=== PATIENT | female | born 1975 | race Caucasian/White ===

== ENCOUNTER → 2017-09-03 | Outpatient (CLI) | payer MEDICAID ==
--- NOTE | 2017-09-06 11:56 | MM ---
Reason for exam: screening (asymptomatic). Last mammogram was performed 1 year and 5 months ago. History: Taking hormonal contraceptives for 25 years beginning at age 13. Physical Findings: A clinical breast exam by your physician is recommended on an annual basis and results should be correlated with mammographic findings. MG 3D Screening Mammo W/Cad Bilateral CC and MLO view(s) were taken. Prior study comparison: April 15, 2016, bilateral MG 3d screening mammo w/cad. April 02, 2015, bilateral MG screening mammo w CAD. The breast tissue is heterogeneously dense. This may lower the sensitivity of mammography. There is no discrete abnormality. No significant changes when compared with prior studies. ASSESSMENT: Negative, BI-RAD 1 RECOMMENDATION: Routine screening mammogram of both breasts in 1 year.
== END | disposition home or self-care (01) ==
LOC: RADMAMWWP 07:34
PROVIDERS: ATTEND Obstetrics & Gynecology
DX: Z12.31 Encounter for screening mammogram for malignant neoplasm of breast (principal)
CPT/HCPCS: 77063; 77067

== ENCOUNTER → 2017-09-14 | Outpatient (CLI) | payer MEDICAID ==
[2017-09-14 07:09] LABS: Basophils # (A) 0.1 k/uL (0-0.2); Basophils % (A) 1 %; Eosinophils # (A) 0.3 k/uL (0-0.7); Eosinophils % (A) 4 %; HCT 43.5 % (34.0-46.0); HGB 13.8 gm/dL (11.4-16.0); Lymphocytes # (A) 2.6 k/uL (1.0-4.8); Lymphocytes % (A) 38 %; MCH 28.6 pg (25.0-35.0); MCHC 31.8 g/dL (31.0-37.0); Mean Platelet Volume 7.4; Monocytes # (A) 0.4 k/uL (0-1.0); Monocytes % (A) 5 %; Neutrophils # (A) 3.5 k/uL (1.3-7.7); Neutrophils % (A) 49 %; Platelet Count 282 k/uL (150-450); RBC 4.83 m/uL (3.80-5.40); RDW 13.8 % (11.5-15.5)
== END | disposition home or self-care (01) ==
LOC: LABPAT 06:36
PROVIDERS: ATTEND Orthopaedic Surgery
DX: Z01.812 Encounter for preprocedural laboratory examination (principal); G56.01 Carpal tunnel syndrome, right upper limb
CPT/HCPCS: 36415; 81025; 85025

== ENCOUNTER 2017-09-23 06:25 | Day surgery (SDC) | payer MEDICAID ==
[2017-09-16 08:57] VITALS: BMI 29.5
--- NOTE | 2017-09-22 21:13 | HP ---
HISTORY AND PHYSICAL SURGERY: 09/23/2016. DATE OF SERVICE: Romelia Blanton is a 42-year-old patient seen with symptomatic right carpal tunnel syndrome. After having treatment options discussed, she elected to proceed with decompression of the right median nerve. Consent was obtained. PAST MEDICAL HISTORY: Noncontributory. PAST SURGICAL HISTORY: Noncontributory. DAILY MEDICATIONS: 1. Sprintec. 2. Aleve as needed. ALLERGIES: SULFA. SOCIAL HISTORY: Patient denies current tobacco use. PHYSICAL EVALUATION: RIGHT HAND: Positive carpal compression, carpal Tinel's, both causing numbness and tingling to the median nerve distribution. No tenderness along the A1 enma sites. There is good perfusion sensation distally. There is a good radial pulse present. Right wrist radiographs revealed some mild osteoarthritic changes. An EMG of the right upper extremity revealed carpal tunnel syndrome. IMPRESSION: Right carpal tunnel syndrome. PLAN: Decompression, right median nerve. MMODL / IJN: [id number] /
[~2017-09-23 06:25] MED LIST: DEXAMETHASONE SOD PHOSPHATE 10 MG/ML 1 ML VIAL IV ONE; HYDROmorphone 0.5 MG/0.5 ML SYRINGE IVP PRN; LACTATED RINGERS 1,000 ML IV SCH; LIDOCAINE 1% 20 ML VIAL (10MG/ML) FOR IV START INTRADERMA PRN; MIDAZOLAM 2 MG/2 ML VIAL IV PRN; ONDANSETRON 4 MG/2 ML VIAL IVP ONE; SCOPOLAMINE 1.5MG/72HR PATCH TRANSDERM ONE; ceFAZolin 1,000 MG in DEXTROSE/WATER 1 50ML.BAG IV ONE
[2017-09-23] MEDS ORDERED: LIDOCAINE 1% INJ 10MG/ML (20 ML MDV) ONE (07:27)
[2017-09-23] MEDS ORDERED: PROPOFOL 10 MG/ML 20 ML VIAL IV ONE (07:27)
[2017-09-23] MEDS ORDERED: fentaNYL (PF) 50 MCG/ML 2 ML AMP ONE (07:27)
[2017-09-23] MEDS ORDERED: MIDAZOLAM 2 MG/2 ML VIAL ONE (07:27)
[2017-09-23] MEDS ORDERED: BUPIVACAINE (PF) 0.25% 30 ML VIAL SQ ONE (07:37)
--- NOTE | 2017-09-23 08:00 | P.OP ---
Date of Procedure: 09/23/17 Preoperative Diagnosis: Right carpal tunnel syndrome Postoperative Diagnosis: Right carpal tunnel syndrome Procedure(s) Performed: Decompression right median nerve Anesthesia: MAC, local Surgeon: Westley Sweeney Estimated Blood Loss (ml): 0 Pathology: none sent Condition: stable Disposition: PACU Indications for Procedure: 42-year-old patient seen with symptomatic right carpal tunnel syndrome. We discussed treatment options, she elected to proceed with decompression right median nerve. Operative Findings: See description of procedure Description of Procedure: The patient was taken to the operative suite. The patient underwent IV sedation by the department of anesthesia. A well-padded tourniquet was placed proximal right upper extremity. The right upper extremity was prepped and draped in the normal sterile orthopedic fashion. We infiltrated the proposed incision site with 10 mL quarter percent plain Marcaine. When sufficient local analgesia was noted the tourniquet was insufflated to 250. I made an incision beginning at the distal volar wrist crease extending distally approximately 3 cm in line with the fourth metacarpal sharply through skin. Dissection was taken down through the subcu soft tissues down to the palmar fascia to the transverse carpal ligament. I now incised the transverse carpal ligament. I completed the release proximally and distally with blunt Metzenbaums. There was good decompression of the nerve with complete release of the transverse carpal ligament. There was good hemostasis. The skin margins were proximal nylon suture. We applied sterile dressings followed by sterile web roll and Fausto bandage. The tourniquet was released with good immediate capillary refill of all digits. Patient then awakened, transferred to recovery stable condition.
[2017-09-23 08:02] VITALS: TEMP 97.6
[2017-09-23 09:09] VITALS: BP 108/60; PULSE 61; RESP 18
== END 2017-09-23 09:35 | disposition home or self-care (01) ==
LOC: OR 06:25
PROVIDERS: ATTEND Orthopaedic Surgery
DX: G56.01 Carpal tunnel syndrome, right upper limb (principal); E07.9 Disorder of thyroid, unspecified; Z88.2 Allergy status to sulfonamides; Z79.3 Long term (current) use of hormonal contraceptives; Z79.899 Other long term (current) drug therapy
CPT/HCPCS: 64721; 81025; J1100; J2405; J0690

== ENCOUNTER → 2018-01-13 | Outpatient (CLI) | payer MEDICAID ==
[2018-01-13 07:44] LABS: HCT 37.7 % (34.0-46.0); HGB 12.6 gm/dL (11.4-16.0); MCH 29.3 pg (25.0-35.0); MCHC 33.4 g/dL (31.0-37.0); MCV 87.8 fL (80.0-100.0); Mean Platelet Volume 6.9; Platelet Count 235 k/uL (150-450); RBC 4.29 m/uL (3.80-5.40); RDW 12.7 % (11.5-15.5); WBC 6.5 k/uL (3.8-10.6)
[2018-01-13 09:06] LABS: ALT 23 U/L (9-52); AST 19 U/L (14-36); Albumin 4.1 g/dL (3.5-5.0); Alkaline Phosphatase 51 U/L (38-126); Anion Gap 11 mmol/L; Blood Urea Nitrogen 12 mg/dL (7-17); Calcium 9.3 mg/dL (8.4-10.2); Carbon Dioxide 27 mmol/L (22-30); Chloride 103 mmol/L (98-107); Cholesterol 176 mg/dL (<200); Glucose 85 mg/dL (74-99); HDL Cholesterol 48 mg/dL (40-60); LDL Cholesterol,Calculated 109 mg/dL (0-99); Potassium 4.2 mmol/L (3.5-5.1); Sodium 141 mmol/L (137-145); Total Bilirubin 1.1 mg/dL (0.2-1.3); Total Protein 6.8 g/dL (6.3-8.2); Triglycerides 94 mg/dL (<150)
== END | disposition home or self-care (01) ==
LOC: LABWHC1 07:08
PROVIDERS: ATTEND Family Medicine
DX: E03.9 Hypothyroidism, unspecified (principal); R53.83 Other fatigue
CPT/HCPCS: 36415; 80053; 80061; 84439; 84443; 84481; 85027

== ENCOUNTER → 2018-08-09 | Outpatient (CLI) | payer MEDICAID | END | disposition home or self-care (01) | LOC: LABWHC1 15:49 | PROVIDERS: ATTEND Obstetrics & Gynecology | DX: N91.2 Amenorrhea, unspecified (principal); N93.8 Other specified abnormal uterine and vaginal bleeding | CPT/HCPCS: 36415; 82670; 83001; 83002 ==

== ENCOUNTER → 2018-08-10 | Outpatient (CLI) | payer MEDICAID ==
--- NOTE | 2018-08-11 07:16 | US ---
EXAMINATION TYPE: US transvaginal DATE OF EXAM: 08/10/2018 COMPARISON: US CLINICAL HISTORY: N93.8 DUB. Pt states DUB since February TECHNIQUE: Transvaginal (TV). Transvaginal sonographic images of the pelvis were acquired. Date of LMP: 07/23/2018 EXAM MEASUREMENTS: Uterus: 9.0 x 3.8 x 5.3 cm Endometrial Stripe: 0.9 cm Right Ovary: 3.2 x 2.6 x 2.1 cm Left Ovary: 2.0 x 1.9 x 1.5 cm 1. Uterus: Anteverted Heterogeneous, multiple Nabothian cysts in cervix, small cystic areas scatte red within myometrium- largest= 0.7 x 0.4 x 0.5 cm 2. Endometrium: ?thickened 3. Right Ovary: probable involuting hemorrhagic cyst= 2.1 x 1.6 x 1.7 cm 4. Left Ovary: wnl 5. Bilateral Adnexa: wnl 6. Posterior cul-de-sac: Small amount of free fluid IMPRESSION: 1. Probable hemorrhagic cyst right ovary. 2. Cervical nabothian cysts.
== END | disposition home or self-care (01) ==
LOC: RADUSWWP 15:36
PROVIDERS: ATTEND Obstetrics & Gynecology
DX: N88.8 Other specified noninflammatory disorders of cervix uteri (principal); N93.8 Other specified abnormal uterine and vaginal bleeding
CPT/HCPCS: 76830

== ENCOUNTER → 2018-09-08 | Outpatient (CLI) | payer MEDICAID ==
--- NOTE | 2018-09-08 16:35 | MR ---
EXAMINATION TYPE: MR knee RT wo con DATE OF EXAM: 09/08/2018 COMPARISON: Plain film 08/31/2017 HISTORY: Pain in right knee TECHNIQUE: Multiplanar, multisequence imaging of the right knee is performed without IV contrast. FINDINGS: MEDIAL MENISCUS: Posterior horn of the medial meniscus shows some increased signal which does not ext end to the articular surface may be due to degeneration LATERAL MENISCUS: Anterior and posterior horns are intact without tear. CRUCIATE LIGAMENTS: The anterior and posterior cruciate ligaments are intact and unremarkable. COLLATERAL LIGAMENTS: The medial collateral ligament and lateral collateral ligament complex are inta ct and unremarkable. EXTENSOR MECHANISM: Visualized quadriceps and patellar tendons are intact. EFFUSION: There is a small joint effusion. POPLITEAL CYST: No popliteal/romo cyst. 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 OTHER: No additional significant abnormality is appreciated. IMPRESSION: Chondromalacia patella and additional findings above..
== END | disposition home or self-care (01) ==
LOC: RADMRIMAIN 15:37
PROVIDERS: ATTEND Orthopaedic Surgery
DX: M22.41 Chondromalacia patellae, right knee (principal)

== ENCOUNTER → 2018-09-13 | Outpatient (CLI) | payer MEDICAID ==
--- NOTE | 2018-09-19 14:41 | MM ---
Reason for exam: screening (asymptomatic). Last mammogram was performed 1 year ago. History: Taking hormonal contraceptives for 25 years beginning at age 13. Physical Findings: A clinical breast exam by your physician is recommended on an annual basis and results should be correlated with mammographic findings. MG 3D Screening Mammo W/Cad Bilateral CC and MLO view(s) were taken. Prior study comparison: September 03, 2017, bilateral MG 3d screening mammo w/cad. April 15, 2016, bilateral MG 3d screening mammo w/cad. The breast tissue is heterogeneously dense. This may lower the sensitivity of mammography. No significant changes when compared with prior studies. ASSESSMENT: Negative, BI-RAD 1 RECOMMENDATION: Routine screening mammogram of both breasts in 1 year.
== END | disposition home or self-care (01) ==
LOC: RADMAMWWP 07:14
PROVIDERS: ATTEND Obstetrics & Gynecology
DX: Z12.31 Encounter for screening mammogram for malignant neoplasm of breast (principal)
CPT/HCPCS: 77063; 77067

== ENCOUNTER → 2018-09-13 | Outpatient (CLI) | payer MEDICAID ==
[2018-09-13 08:23] LABS: HCT 39.3 % (34.0-46.0); HGB 12.7 gm/dL (11.4-16.0); MCH 28.8 pg (25.0-35.0); MCHC 32.3 g/dL (31.0-37.0); MCV 89.1 fL (80.0-100.0); Mean Platelet Volume 6.4; Platelet Count 286 k/uL (150-450); RBC 4.41 m/uL (3.80-5.40); RDW 12.6 % (11.5-15.5); WBC 7.8 k/uL (3.8-10.6)
[2018-09-13 18:00] LABS: Albumin 4.2 g/dL (3.80-4.90); Albumin/Globulin Ratio 1.83 (1.20-2.10); Anion Gap 7.3 mmol/L (4.00-12.00); Calcium 8.8 mg/dL (8.7-10.3); Carbon Dioxide 25.7 mmol/L (21.6-31.8); Globulin 2.3 g/dL (1.6-3.3); LDL Cholesterol,Calculated 102.8 mg/dL (0.0-131.0); Potassium 4.3 mmol/L (3.5-5.5); Total Bilirubin 0.6 mg/dL (0.2-1.2); Total Protein 6.5 g/dL (6.2-8.2); VLDL Calculation 30.2 mg/dL (5.00-40.00)
[2018-09-13 18:08] LABS: T4, Free (Free Thyroxine) 1.1 ng/dL (0.80-1.80)
== END | disposition home or self-care (01) ==
LOC: LABWHC1 07:40
PROVIDERS: ATTEND Family Medicine
DX: E03.9 Hypothyroidism, unspecified (principal)
CPT/HCPCS: 36415; 80053; 80061; 84439; 84443; 85027

== ENCOUNTER 2019-01-25 07:41 | Day surgery (SDC) | payer MEDICAID ==
[~2019-01-25 07:41] MED LIST changes: -DEXAMETHASONE SOD PHOSPHATE 10 MG/ML 1 ML VIAL IV ONE; -HYDROmorphone 0.5 MG/0.5 ML SYRINGE IVP PRN; -LIDOCAINE 1% 20 ML VIAL (10MG/ML) FOR IV START INTRADERMA PRN; -MIDAZOLAM 2 MG/2 ML VIAL IV PRN; -ONDANSETRON 4 MG/2 ML VIAL IVP ONE; -SCOPOLAMINE 1.5MG/72HR PATCH TRANSDERM ONE; -ceFAZolin 1,000 MG in DEXTROSE/WATER 1 50ML.BAG IV ONE
[2019-01-25 08:25] VITALS: TEMP 98.3
[2019-01-25] MEDS ORDERED: PROPOFOL 10 MG/ML 20 ML VIAL IV ONE (08:33)
--- NOTE | 2019-01-25 08:39 | P.GSHP ---
History of Present Illness H&P Date: 01/25/19 Chief Complaint: Rectal bleeding Patient here today with complaints of intermittent rectal bleeding. She admits to perianal discomfort at times. Some constipation. History of IBS. Last colonoscopy several years ago and that was normal. Past Medical History Past Medical History: Thyroid Disorder Additional Past Medical History / Comment(s): IBS History of Any Multi-Drug Resistant Organisms: None Reported Past Surgical History: Cholecystectomy Additional Past Surgical History / Comment(s): CARPAL TUNNEL RIGHT. LAPROSCOPY VARICOSITY ON BOTH OVARIES. MAX AND MANDIBLE RECONSTRUCTION FOR BITE ISSUE. Past Anesthesia/Blood Transfusion Reactions: Postoperative Nausea & Vomiting (PONV) Additional Past Anesthesia/Blood Transfusion Reaction / Comment(s): HARD TO WAKE UP. Past Psychological History: ADD/ADHD, Anxiety Smoking Status: Never smoker Past Alcohol Use History: Occasional Past Drug Use History: None Reported - Past Family History Mother Family Medical History: No Reported History Medications and Allergies Home Medications Medication Instructions Recorded Confirmed Type Levothyroxine Sodium [Synthroid] 25 mcg PO QAM 09/16/17 01/25/19 History Multivit with Calcium,Iron,Min 1 each PO DAILY 09/23/17 01/20/19 History [Women's Multivitamin] Escitalopram [Lexapro] 5 mg PO HS 01/20/19 01/25/19 History Lisdexamfetamine Dimesylate 40 mg PO QAM 01/20/19 01/25/19 History [Vyvanse] Norethindrone-E.estradiol-Iron 1 tab PO QAM 01/20/19 01/25/19 History [Junel Fe 1 mg-20 Mcg Tablet] Allergies Allergy/AdvReac Type Severity Reaction Status Date / Time Sulfa (Sulfonamide Allergy Vomiting Verified 01/25/19 08:18 Antibiotics) Surgical - Exam Vital Signs Temp Pulse Resp BP Pulse Ox 98.3 F 68 17 114/73 99 01/25/19 08:24 01/25/19 08:24 01/25/19 08:24 01/25/19 08:24 01/25/19 08:24 Physical exam: General: Well-developed, well-nourished HEENT: Normocephalic, sclerae nonicteric Abdomen: Nontender, nondistended Extremities: No edema Neuro: Alert and oriented Assessment and Plan (1) Rectal bleeding Narrative/Plan: Will proceed with colonoscopy Current Visit: Yes Status: Acute Code(s): K62.5 - HEMORRHAGE OF ANUS AND RECTUM SNOMED Code(s): 95690639
--- NOTE | 2019-01-25 08:53 | P.PCN ---
Date of Procedure: 01/25/19 Procedure(s) Performed: PREOPERATIVE DIAGNOSIS: Rectal bleeding POSTOPERATIVE DIAGNOSIS: Small internal and external hemorrhoids PROCEDURE: Colonoscopy ANESTHESIA: MAC SURGEON: Devon Huang M.D. SPECIMENS: None ENDOSCOPIC PROCEDURE: The patient was placed on the endoscopy table in the left decubitus position. The Olympus colonoscope was inserted into the anus and passed under direct visualization to the base of the cecum. The appendiceal orifice was visualized. From that point the scope was slowly withdrawn inspecting all surfaces carefully. There were no neoplastic inflammatory or polypoid lesions throughout the cecum, ascending, transverse, descending, sigmoid and rectum. There was no visible diverticulosis noted. Digital rectal examination revealed small internal and external hemorrhoids. The patient was taken to the recovery room in stable condition per anesthesia guidelines. RECOMMENDATIONS: Increase fiber. Follow-up colonoscopy 10yrs.
[2019-01-25] MEDS ORDERED: IV FLUID CONTINUATION 600 ML IV ONE (08:55)
[2019-01-25 08:58] VITALS: RESP 16
[2019-01-25 09:11] VITALS: BP 110/68; PULSE 63
== END 2019-01-25 09:46 | disposition home or self-care (01) ==
LOC: ORWHC2ENDO 07:41
PROVIDERS: ATTEND Surgery
DX: K64.8 Other hemorrhoids (principal); K64.4 Residual hemorrhoidal skin tags; F90.9 Attention-deficit hyperactivity disorder, unspecified type; F41.9 Anxiety disorder, unspecified; E07.9 Disorder of thyroid, unspecified; K58.9 Irritable bowel syndrome, unspecified; Z88.2 Allergy status to sulfonamides; Z79.899 Other long term (current) drug therapy; Z79.890 Hormone replacement therapy; Z79.3 Long term (current) use of hormonal contraceptives; F32.9 Major depressive disorder, single episode, unspecified
CPT/HCPCS: 81025; 45378; J2704

== ENCOUNTER → 2019-05-18 | Outpatient (CLI) | payer MEDICAID ==
[2019-05-18 07:29] LABS: HCT 38.9 % (34.0-46.0); HGB 12.9 gm/dL (11.4-16.0); MCH 29.3 pg (25.0-35.0); MCHC 33.2 g/dL (31.0-37.0); MCV 88.2 fL (80.0-100.0); Mean Platelet Volume 6.8; Platelet Count 255 k/uL (150-450); RBC 4.41 m/uL (3.80-5.40); RDW 12.5 % (11.5-15.5); WBC 8.3 k/uL (3.8-10.6)
[2019-05-18 16:17] LABS: African American GFR (CKD) 88.9 (60.0-200.0); Albumin 4.3 g/dL (3.80-4.90); Albumin/Globulin Ratio 1.95 (1.60-3.17); BUN/Creat Ratio 15.56 Ratio (12.00-20.00); Calcium 8.7 mg/dL (8.7-10.3); Chol/HDL Ratio 4.12; Globulin 2.2 g/dL (1.6-3.3); LDL Cholesterol,Calculated 123.6 mg/dL (0.0-131.0); Phosphorus 3.4 mg/dL (2.4-5.1); Potassium 4.3 mmol/L (3.5-5.5); Total Bilirubin 0.5 mg/dL (0.3-1.2); Total Protein 6.5 g/dL (6.2-8.2); VLDL Calculation 35.4 mg/dL (5.00-40.00)
== END | disposition home or self-care (01) ==
LOC: LABWHC1 06:44
PROVIDERS: ATTEND Family Medicine
DX: R25.2 Cramp and spasm (principal)
CPT/HCPCS: 36415; 80053; 80061; 83735; 84100; 84439; 84443; 85027

== ENCOUNTER 2020-01-26 18:50 | Emergency (ER) | payer MEDICAID ==
[2020-01-26 18:55] VITALS: RESP 18
[2020-01-26] MEDS ORDERED: KETOROLAC 30 MG/ML 1 ML VIAL IM STA (19:05)
[2020-01-26] MEDS ORDERED: ACETAMINOPHEN TAB 500 MG TAB PO STA (19:05)
--- NOTE | 2020-01-26 19:08 | ED ---
Fall HPI - General Chief Complaint: Fall Stated Complaint: Ankle injury Time Seen by Provider: 01/26/20 19:01 Source: patient Mode of arrival: ambulatory - History of Present Illness Initial Comments: 44-year-old female patient presents to the emergency department today for evaluation of right ankle pain and swelling. Patient states he is also having discomfort to the right knee. Patient states around 6 PM this evening she was coming down the stairs when she fell off the last step twisting her ankle. Patient states she had onset of immediate pain and swelling to the area. States on the way here she was having some tingling in the right great toe but states this has resolved. Patient has been applying ice but denies taking any medication for her symptoms. States that she did fall but she denies hitting her head or losing consciousness. Denies any neck or back pain. Denies any other injuries. Patient denies any headache, chest pain, shortness of breath, dizziness, weakness, abdominal pain, nausea, vomiting, or difficulties with bowel movements or urination. - Related Data Home Medications Medication Instructions Recorded Confirmed Levothyroxine Sodium [Synthroid] 25 mcg PO QAM 09/16/17 01/25/19 Multivit with Calcium,Iron,Min 1 each PO DAILY 09/23/17 01/20/19 [Women's Multivitamin] Escitalopram [Lexapro] 5 mg PO HS 01/20/19 01/25/19 Lisdexamfetamine Dimesylate 40 mg PO QAM 01/20/19 01/25/19 [Vyvanse] Norethindrone-E.estradiol-Iron 1 tab PO QAM 01/20/19 01/25/19 [Junel Fe 1 mg-20 Mcg Tablet] Previous Rx's Medication Instructions Recorded Ibuprofen [Motrin] 600 mg PO Q8HR PRN #30 tab 01/26/20 Allergies Allergy/AdvReac Type Severity Reaction Status Date / Time Sulfa (Sulfonamide Allergy Vomiting Verified 01/26/20 18:55 Antibiotics) Review of Systems ROS Statement: Those systems with pertinent positive or pertinent negative responses have been documented in the HPI. ROS Other: All systems not noted in ROS Statement are negative. Past Medical History Past Medical History: Thyroid Disorder Additional Past Medical History / Comment(s): IBS History of Any Multi-Drug Resistant Organisms: None Reported Past Surgical History: Cholecystectomy Additional Past Surgical History / Comment(s): CARPAL TUNNEL RIGHT. LAPROSCOPY VARICOSITY ON BOTH OVARIES. MAX AND MANDIBLE RECONSTRUCTION FOR BITE ISSUE. Past Anesthesia/Blood Transfusion Reactions: Postoperative Nausea & Vomiting (PONV) Additional Past Anesthesia/Blood Transfusion Reaction / Comment(s): HARD TO WAKE UP. Past Psychological History: ADD/ADHD, Anxiety Smoking Status: Never smoker Past Alcohol Use History: Occasional Past Drug Use History: None Reported - Past Family History Mother Family Medical History: No Reported History General Exam Limitations: no limitations General appearance: alert, in no apparent distress, other (This is a well- developed, well-nourished adult female patient in no acute distress. Vital signs upon presentation are temperature 98.8F, pulse 70, respirations 18, blood pressure 138/78, pulse ox 98% on room air.) Head exam: Present: atraumatic, normocephalic, normal inspection Neck exam: Present: normal inspection, other (Nontender, no step-off, no deformity to firm midline palpation of the posterior cervical spine. Full range of motion without pain or limitation.). Absent: tenderness, meningismus, lymphadenopathy Respiratory exam: Present: normal lung sounds bilaterally. Absent: respiratory distress, wheezes, rales, rhonchi, stridor Cardiovascular Exam: Present: regular rate, normal rhythm, normal heart sounds. Absent: systolic murmur, diastolic murmur, rubs, gallop, clicks Extremities exam: Present: full ROM, tenderness (Right lateral malleolus), normal capillary refill, other (Patient has soft tissue swelling noted surrounding the right ankle. There is tenderness over the right medial and lateral malleolus. There is tenderness over the proximal tib-fib. Skin to the leg and foot is pink, warm, dry. Cap refills less than 3 seconds. Pedal and posttibial pulses are 2+ and equal bilaterally.). Absent: normal inspection, pedal edema, joint swelling, calf tenderness Neurological exam: Present: alert, oriented X3, CN II-XII intact Psychiatric exam: Present: normal affect, normal mood Skin exam: Present: warm, dry, intact, normal color. Absent: rash Course Vital Signs 01/26/20 01/26/20 18:52 20:01 Temperature 98.8 F 98.4 F Pulse Rate 70 76 Respiratory 18 18 Rate Blood Pressure 138/78 133/73 O2 Sat by Pulse 98 97 Oximetry Medical Decision Making - Medical Decision Making 44 year-old female patient presents to the emergency department today for evaluation of right ankle pain and swelling. Patient is also reporting right knee discomfort. Physical examination did reveal swelling surrounding the right ankle, tenderness over the medial lateral malleolus. Patient did also have some mild proximal tib-fib tenderness. Neurovascular status is intact. X-rays of the ankle and tib-fib were obtained and showed no acute fracture or osseous abnormalities. Patient symptoms are consistent with sprain of the right ankle. We'll place an ankle stirrup splint. Educated regarding rest, ice, elevation, use of anti-inflammatories for pain relief. She is given a prescription for crutches. She is instructed to follow-up with her primary care physician for recheck in 1-2 days. Return parameters were discussed in detail. She verbalizes understanding and agrees with this plan. - Radiology Data Radiology results: report reviewed, image reviewed 3 views of the right ankle is obtained. Report was reviewed in its entirety. Impression by Dr. Osman shows soft tissue swelling lateral malleolus. 2 views of the right tib-fib were obtained. Report is reviewed in its entirety. Impression by Dr. Osman shows no acute osseous abnormality right tib-fib. Disposition Clinical Impression: Right ankle sprain Disposition: HOME SELF-CARE Condition: Good Instructions (If sedation given, give patient instructions): Ankle Sprain (ED) Additional Instructions: Rest, ice, elevate the right ankle. Apply ice 20 minutes at a time at least 4 times daily. Take Tylenol and Motrin for pain control. Follow-up with your primary care physician for recheck in 1-2 days. Return to the emergency department immediately for any new, worsening, or concerning symptoms. Prescriptions: Ibuprofen [Motrin] 600 mg PO Q8HR PRN #30 tab PRN Reason: Pain Is patient prescribed a controlled substance at d/c from ED?: No Referrals: Samara Peña DO [Primary Care Provider] - 1-2 days Time of Disposition: 19:49
--- NOTE | 2020-01-26 19:45 | XR ---
EXAMINATION TYPE: XR tibia fibula RT DATE OF EXAM: 01/26/2020 COMPARISON: None HISTORY: Proximal tenderness TECHNIQUE: 2 view right tibia and fibula FINDINGS: No acute fractures or dislocations are evident. Soft tissues appear normal. Joint spaces ap pear preserved. Follow-up exams can be performed 7-10 days from acute trauma for continued pain. IMPRESSION: 1. No acute osseous abnormality right tibia and fibula.
--- NOTE | 2020-01-26 19:45 | XR ---
EXAMINATION TYPE: XR ankle complete RT DATE OF EXAM: 01/26/2020 COMPARISON: None HISTORY: Pain, swelling, injury TECHNIQUE: Three-view right ankle FINDINGS: Soft tissue swelling is over the lateral malleolus. Ankle mortise is intact. No acute fract ures evident. IMPRESSION: 1. Soft tissue swelling lateral malleolus. 2. Follow-up exam can be performed 7-10 days from acute trauma for continued pain.
[2020-01-26 20:01] VITALS: BP 133/73; PULSE 76; TEMP 98.4
== END 2020-01-26 20:01 | disposition home or self-care (01) ==
LOC: EC 18:50
DX: S93.401A Sprain of unspecified ligament of right ankle, initial encounter (principal); F41.9 Anxiety disorder, unspecified; F90.9 Attention-deficit hyperactivity disorder, unspecified type; E07.9 Disorder of thyroid, unspecified; Z88.2 Allergy status to sulfonamides; Z79.890 Hormone replacement therapy; Z79.899 Other long term (current) drug therapy; Z90.49 Acquired absence of other specified parts of digestive tract; W10.8XXA Fall (on) (from) other stairs and steps, initial encounter; Y93.89 Activity, other specified
CPT/HCPCS: 73590; 73610; 99283; 96372; 29515; L4350; J1885

== ENCOUNTER → 2020-02-22 | Outpatient (CLI) | payer MEDICAID ==
--- NOTE | 2020-02-22 16:01 | MR ---
EXAMINATION TYPE: MR shoulder LT wo con DATE OF EXAM: 02/22/2020 COMPARISON: Radiograph 01/30/2020 HISTORY: 44-year-old female M25.512, left shoulder pain TECHNIQUE: Multiplanar, multisequence imaging of the left shoulder is performed without contrast. FINDINGS: The long head biceps tendon appears intact and appropriately situated along the bicipital groove. Subscapularis tendon is intact. Diffuse heterogeneity of both supraspinatus and infraspinatus tendons. There is bursal sided fraying of the supraspinatus tendon. More severe thickening and increased signal along the mid fibers with spangler spected small 5 mm long by 8 mm AP intrasubstance tear located 1 cm proximal to the footprint within these mid fibers. Infraspinatus tendon is intact. Moderate degenerative joint space narrowing and marginal spurring and capsular hypertrophy at the acr omioclavicular joint. There is subchondral bone marrow edema and capsular edema noted. No atrophy of the rotator cuff musculature. Only trace fluid within the subacromial bursa. The glenohumeral joint appears intact. No discrete labral tear given nonarthrographic technique. No p aralabral cyst. No Hill-Sachs deformity or os acromiale. Patchy red marrow is present indicate the seen in setting of anemia, obesity, smoking, and chronic di sease. IMPRESSION: 1. Marked supraspinous tendinosis. Small 5 x 8 mm intrasubstance tear of the mid supraspinatus tendon fibers located 1 cm proximal to its footprint. No high-grade partial or full-thickness rotator cuff tear. 2. Moderate AC joint OA. Subchondral bone marrow and capsular edema could represent an acute exacerba tion of underlying OA or could represent a mild AC joint sprain.
== END | disposition home or self-care (01) ==
LOC: RADMRIMAIN 12:26
PROVIDERS: ATTEND Orthopaedic Surgery
DX: M19.012 Primary osteoarthritis, left shoulder (principal); S46.812A Strain of other muscles, fascia and tendons at shoulder and upper arm level, left arm, initial encounter; M75.02 Adhesive capsulitis of left shoulder

== ENCOUNTER → 2020-05-01 | Outpatient (CLI) | payer MEDICAID ==
[2020-05-01 08:01] LABS: HCT 40.8 % (34.0-46.0); HGB 13.1 gm/dL (11.4-16.0); MCH 28.9 pg (25.0-35.0); Mean Platelet Volume 7.3; Platelet Count 296 k/uL (150-450); RBC 4.53 m/uL (3.80-5.40); RDW 12.8 % (11.5-15.5); WBC 11.3 k/uL (3.8-10.6)
[2020-05-01 17:38] LABS: African American GFR (CKD) 101.8 (60.0-200.0); Albumin 4.4 g/dL (3.80-4.90); Albumin/Globulin Ratio 1.83 (1.60-3.17); Anion Gap 7.8 mmol/L (4.00-12.00); Calcium 9.3 mg/dL (8.7-10.3); Carbon Dioxide 22.2 mmol/L (21.6-31.8); Chol/HDL Ratio 4.29; Globulin 2.4 g/dL (1.6-3.3); LDL Cholesterol,Calculated 137.2 mg/dL (0.0-131.0); Non-African American GFR(CKD) 87.8 (60.0-200.0); Potassium 4.4 mmol/L (3.5-5.5); Total Bilirubin 0.7 mg/dL (0.3-1.2); Total Protein 6.8 g/dL (6.2-8.2); VLDL Calculation 30.8 mg/dL (5.00-40.00)
[2020-05-01 18:28] LABS: Hepatitis A Antibody IgM Non-Reactive (Non-Reactive); Hepatitis B Core IgM Non-Reactive (Non-Reactive); Hepatitis B Surface Antigen Non-Reactive (Non-Reactive); Hepatitis C IgG Antibody Non-Reactive (Non-Reactive)
[2020-05-01 18:37] LABS: T4, Free (Free Thyroxine) 0.8 ng/dL (0.80-1.80)
[2020-05-01 21:29] LABS: Hemoglobin A1C 5.5 % (4.0-6.0)
== END | disposition home or self-care (01) ==
LOC: LABWHC1 07:13
PROVIDERS: ATTEND Family Medicine
DX: R53.83 Other fatigue (principal)
CPT/HCPCS: 36415; 80053; 80061; 80074; 82306; 82607; 83036; 84439; 84443; 84481; 85027

== ENCOUNTER → 2020-09-30 | Outpatient (CLI) | payer MEDICAID ==
[2020-09-30 15:00] LABS: HCT 40.4 % (37.2-46.3); HGB 13.3 g/dL (12.0-15.0); MCH 29.5 pg (27.0-32.0); MCHC 32.9 g/dL (32.0-37.0); MCV 89.6 fL (80.0-97.0); Mean Platelet Volume 10.4 fL (9.5-12.2); Platelet Count 270 X 10*3/uL (140-440); RBC 4.51 X 10*6/uL (4.10-5.20); RDW 12.4 % (11.5-14.5); WBC 6.52 X 10*3/uL (4.50-10.00)
[2020-09-30 15:45] LABS: African American GFR (CKD) 88.2 (60.0-200.0); Albumin 4.7 g/dL (3.80-4.90); Albumin/Globulin Ratio 2.24 (1.60-3.17); Anion Gap 5.6 mmol/L (4.00-12.00); BUN/Creat Ratio 13.33 Ratio (12.00-20.00); Calcium 9.5 mg/dL (8.7-10.3); Carbon Dioxide 29.4 mmol/L (21.6-31.8); Chol/HDL Ratio 4.51; Globulin 2.1 g/dL (1.6-3.3); LDL Cholesterol,Calculated 146.4 mg/dL (0.0-131.0); Non-African American GFR(CKD) 76.1 (60.0-200.0); Potassium 4.2 mmol/L (3.5-5.5); Total Protein 6.8 g/dL (6.2-8.2); VLDL Calculation 32.6 mg/dL (5.00-40.00)
[2020-09-30 17:48] LABS: Hemoglobin A1C 5.3 % (4.0-6.0)
== END | disposition home or self-care (01) ==
LOC: LABWHC1 08:17
PROVIDERS: ATTEND Family Medicine
DX: R73.02 Impaired glucose tolerance (oral) (principal)
CPT/HCPCS: 36415; 80053; 80061; 83001; 83036; 84443; 85027

== ENCOUNTER → 2021-02-20 | Outpatient (CLI) | payer MEDICAID ==
[2021-02-20 11:06] LABS: HCT 38.9 % (37.2-46.3); HGB 12.6 g/dL (12.0-15.0); MCH 29.4 pg (27.0-32.0); MCHC 32.4 g/dL (32.0-37.0); MCV 90.7 fL (80.0-97.0); Mean Platelet Volume 10.5 fL (9.5-12.2); Platelet Count 288 X 10*3/uL (140-440); RBC 4.29 X 10*6/uL (4.10-5.20); RDW 12.8 % (11.5-14.5); WBC 7.57 X 10*3/uL (4.50-10.00)
[2021-02-20 14:06] LABS: ALT 28 U/L (8-44); AST 26 U/L (13-35); African American GFR (CKD) 77.7 (60.0-200.0); Albumin/Globulin Ratio 1.83 (1.60-3.17); Alkaline Phosphatase 49 U/L (41-126); Calcium 9.4 mg/dL (8.7-10.3); Carbon Dioxide 26.3 mmol/L (21.6-31.8); Chloride 107 mmol/L (96-109); Cholesterol 239 mg/dL (0-200); Globulin 2.4 g/dL (1.6-3.3); Glucose 99 mg/dL (70-110); LDL Cholesterol,Calculated 149.4 mg/dL (0.0-131.0); Potassium 4.5 mmol/L (3.5-5.5); Sodium 141 mmol/L (135-145); Total Bilirubin 0.7 mg/dL (0.3-1.2); Total Protein 6.8 g/dL (6.2-8.2)
[2021-02-20 14:15] LABS: Follicle Stimulating Hormone 15.1 mIU/mL
[2021-02-20 14:19] LABS: Estradiol <11.8 pg/mL
== END | disposition home or self-care (01) ==
LOC: LABWHC1 07:01
PROVIDERS: ATTEND Family Medicine
DX: E03.9 Hypothyroidism, unspecified (principal); E66.9 Obesity, unspecified; I10 Essential (primary) hypertension; R53.83 Other fatigue
CPT/HCPCS: 36415; 80053; 80061; 82306; 82670; 83001; 84443; 85027

== ENCOUNTER → 2021-07-21 | Outpatient (CLI) | payer MEDICAID ==
[2021-07-21 10:53] LABS: Basophils # (A) 0.06 X 10*3/uL (0.00-0.10); Basophils % (A) 0.6 %; Eosinophils # (A) 0.29 X 10*3/uL (0.04-0.35); Eosinophils % (A) 2.8 %; HCT 39.7 % (37.2-46.3); Lymphocytes # (A) 2.66 X 10*3/uL (0.90-5.00); MCHC 32.7 g/dL (32.0-37.0); MCV 91.7 fL (80.0-97.0); Mean Platelet Volume 10.4 fL (9.5-12.2); Monocytes # (A) 0.47 X 10*3/uL (0.20-1.00); Monocytes % (A) 4.6 %; Neutrophils # (A) 6.71 X 10*3/uL (1.80-7.70); Neutrophils % (A) 65.6 %; Platelet Count 309 X 10*3/uL (140-440); RBC 4.33 X 10*6/uL (4.10-5.20); RDW 13.1 % (11.5-14.5); WBC 10.23 X 10*3/uL (4.50-10.00)
[2021-07-21 11:15] LABS: Anion Gap 12.5 mmol/L (10.00-18.00); Carbon Dioxide 20.5 mmol/L (20.0-27.5)
== END | disposition home or self-care (01) ==
LOC: LABWHC1 07:02
PROVIDERS: ATTEND Orthopaedic Surgery
DX: M65.311 Trigger thumb, right thumb (principal)
CPT/HCPCS: 36415; 80051; 85025

== ENCOUNTER 2021-07-24 06:12 | Day surgery (SDC) | payer MEDICAID ==
[2021-07-21 15:03] VITALS: BMI 33.8
--- NOTE | 2021-07-23 20:14 | HP ---
HISTORY AND PHYSICAL DATE OF SURGERY: 07/24/2021 Romelia Blanton is a 46-year-old patient seen with persistent symptomatic right trigger thumb. We discussed options. She elected to proceed with release A1 enma, right thumb. Consent was obtained. PAST MEDICAL HISTORY: Hypothyroidism. PAST SURGICAL HISTORY: Carpal tunnel release. DAILY MEDICATIONS: Levothyroxine. ALLERGIES: NONE. SOCIAL HISTORY: She denies tobacco use. PHYSICAL EVALUATION OF THE RIGHT HAND: She has tenderness along the A1 enma of the right thumb. There is clicking and catching with range of motion. There is good perfusion distally. She is nontender along the remaining A1 enma areas. There is a good radial pulse present. IMPRESSION: 1. Right trigger thumb. 2. Hypothyroidism. PLAN: Release A1 enma, right thumb. MMODL / IJN: [id number] /
[~2021-07-24 06:12] MED LIST changes: +LIDOCAINE 1% (10MG/ML) FOR IV START INTRADERMA PRN; +ONDANSETRON 4 MG/2 ML VIAL IVP ONE
[2021-07-24] MEDS ORDERED: LIDOCAINE 1% (10MG/ML) FOR IV START INTRADERMA ONE (07:00)
[2021-07-24] MEDS ORDERED: HYDROmorphone 0.5 MG/0.5 ML SYRINGE IVP PRN (07:00)
[2021-07-24] MEDS ORDERED: MIDAZOLAM 2 MG/2 ML VIAL IV ONE (07:03)
[2021-07-24 07:07] LABS: Glucose,Whole Blood 95 mg/dL (75-99)
[2021-07-24] MEDS ORDERED: BUPIVACAINE (PF) 0.25% 30 ML VIAL SQ ONE ×2 (07:18→07:38)
[2021-07-24 07:19] VITALS: TEMP 98.5
[2021-07-24] MEDS ORDERED: MIDAZOLAM 2 MG/2 ML VIAL ONE (07:24)
[2021-07-24] MEDS ORDERED: PROPOFOL 10 MG/ML 20 ML VIAL IV ONE (07:24)
[2021-07-24] MEDS ORDERED: .fentaNYL (PF) 50 MCG/ML AMP ONE (07:24)
--- NOTE | 2021-07-24 07:59 | P.OP ---
Date of Procedure: 07/24/21 Preoperative Diagnosis: Right trigger thumb Postoperative Diagnosis: Right trigger thumb Procedure(s) Performed: Release A1 enma right thumb Anesthesia: MAC, local Surgeon: Westley Sweeney Estimated Blood Loss (ml): 0 Pathology: none sent Condition: stable Disposition: PACU Indications for Procedure: 46-year-old patient seen with symptomatic right trigger thumb. After treatment options were discussed, she elected to proceed with release A1 enma right thumb. Operative Findings: See description of procedure Description of Procedure: Patient was taken to the operative suite. She received preoperative IV antibiotics. She underwent IV sedation by the department of anesthesia. A well-padded tourniquet placed proximal right upper extremity. The right upper extremity was prepped and draped in the normal sterile orthopedic fashion. The proposed incision site was infiltrated with 5 mL quarter percent plain Marcaine. The extremity was elevated and tourniquet insufflated to 250. I made an incision in the area of the A1 enma right thumb. I dissected down to the A1 enma. Identify the A1 enma. I released a enma. I now took the thumb through range of motion and noted good excursion of the thumb with no impingement and complete release of the A1 enma. There was good hemostasis. The skin margins were proximal nylon suture. Sterile dressings were applied. The tourniquet was released and immediate capillary refill noted. The patient was awakened and transferred to recovery in stable condition.
[2021-07-24 08:01] VITALS: RESP 16
[2021-07-24 08:35] VITALS: BP 104/72; PULSE 76
== END 2021-07-24 08:55 | disposition home or self-care (01) ==
LOC: OR 06:12
PROVIDERS: ATTEND Orthopaedic Surgery
DX: M65.311 Trigger thumb, right thumb (principal); E03.9 Hypothyroidism, unspecified; F90.9 Attention-deficit hyperactivity disorder, unspecified type; Z79.899 Other long term (current) drug therapy; Z88.2 Allergy status to sulfonamides
CPT/HCPCS: 81025; 26055; J2250; J0690; J2405; J3010; J2704

== ENCOUNTER → 2021-11-04 | Outpatient (CLI) | payer MEDICAID ==
--- NOTE | 2021-11-04 14:02 | CT ---
EXAMINATION TYPE: CT sinus wo con DATE OF EXAM: 11/04/2021 COMPARISON: NONE HISTORY: Chronic sinusitis per order. CT DLP: 613 mGycm. Automated Exposure Control for Dose Reduction was Utilized. TECHNIQUE: CT scan of the sinuses is performed without contrast, axial images are obtained, coronal r eformatted images are also reviewed. FINDINGS: Small caliber left maxillary sinus. The paranasal sinuses are clear without suspicious opac ification or air-fluid levels. The ostiomeatal complex is patent bilaterally on the coronal images. T he nasal septum is deviated to left of midline. Visualized portion of mastoid air cells show no abnormal opacification. The globes are intact bilate rally. IMPRESSION: The sinuses are clear and the ostiomeatal complex is patent bilaterally.
== END | disposition home or self-care (01) ==
LOC: RADCTMAIN 13:28
PROVIDERS: ATTEND Otolaryngology
DX: J32.9 Chronic sinusitis, unspecified (principal)
CPT/HCPCS: 70486

== ENCOUNTER → 2021-12-01 | Outpatient (CLI) | payer MEDICAID ==
[2021-12-01 11:12] LABS: HCT 43.4 % (37.2-46.3); HGB 13.7 g/dL (12.0-15.0); MCH 28.7 pg (27.0-32.0); MCHC 31.6 g/dL (32.0-37.0); MCV 90.8 fL (80.0-97.0); Mean Platelet Volume 10.6 fL (9.5-12.2); NRBC Per 100 WBC 0 /100 WBCS (0.0-0.0); Platelet Count 261 X 10*3/uL (140-440); RBC 4.78 X 10*6/uL (4.10-5.20); RDW 12.3 % (11.5-14.5); WBC 6.83 X 10*3/uL (4.50-10.00)
[2021-12-01 11:49] LABS: ALT 20 U/L (8-44); AST 18 U/L (13-35); African American GFR (CKD) 87.6 (60.0-200.0); Albumin 4.6 g/dL (3.8-4.9); Alkaline Phosphatase 67 U/L (41-126); Blood Urea Nitrogen 15.3 mg/dL (9.0-27.0); Calcium 9.2 mg/dL (8.7-10.3); Carbon Dioxide 24.5 mmol/L (20.0-27.5); Chloride 104 mmol/L (96-109); Chol/HDL Ratio 4.81 Ratio; Globulin 2.3 g/dL (1.6-3.3); Glucose 88 mg/dL (70-110); LDL Cholesterol,Calculated 145.2 mg/dL (0.0-131.0); Non-African American GFR(CKD) 75.6 (60.0-200.0); Potassium 4.5 mmol/L (3.5-5.5); Sodium 138 mmol/L (135-145); Total Protein 6.9 g/dL (6.2-8.2)
== END | disposition home or self-care (01) ==
LOC: LABWHC1 07:02
PROVIDERS: ATTEND Family Medicine
DX: E78.5 Hyperlipidemia, unspecified (principal); R73.02 Impaired glucose tolerance (oral); E55.9 Vitamin D deficiency, unspecified
CPT/HCPCS: 36415; 80053; 80061; 82306; 83036; 84439; 84443; 85027

== ENCOUNTER → 2022-01-22 | Outpatient (CLI) | payer MEDICAID ==
--- NOTE | 2022-01-23 15:41 | MM ---
Reason for Exam: Screening (asymptomatic). Last mammogram was performed 3 year(s) and 5 month(s) ago. Patient History: Menarche at age 10. First Full-Term at age 17. Currently using Hormonal Contraceptives, beginning at age 13 for 25 years. Risk Values: Mavis 5 year model risk: 0.7%. NCI Lifetime model risk: 6.7%. Prior Study Comparison: 04/15/2016 Bilateral Screening Mammogram, [facility]. 09/03/2017 Bilateral Screening Mammogram, [facility]. 09/13/2018 Bilateral Screening Mammogram, [facility]. Tissue Density: The breast tissue is extremely dense which could obscure a lesion on mammography. Findings: Analyzed By CAD. No suspicious spiculated or lobular masses, cluster microcalcifications, architectural distortion, or other secondary signs of malignancy radiographically apparent. Stable focal asymmetries in the upper outer aspect right breast. Overall Assessment: Negative, BI-RAD 1 Management: Screening Mammogram of both breasts in 1 year. A clinical breast exam by your physician is recommended on an annual basis and results should be correlated with mammographic findings. Electronically signed and approved by: Avi Osman D.O. Radiologis
== END | disposition home or self-care (01) ==
LOC: RADMAMWWP 15:07
PROVIDERS: ATTEND Obstetrics & Gynecology
DX: Z12.31 Encounter for screening mammogram for malignant neoplasm of breast (principal)
CPT/HCPCS: 77063; 77067

== ENCOUNTER → 2022-02-27 | Outpatient (CLI) | payer MEDICAID ==
[2022-02-27 10:39] LABS: HCT 41.2 % (37.2-46.3); HGB 13.4 g/dL (12.0-15.0); MCH 28.7 pg (27.0-32.0); MCHC 32.5 g/dL (32.0-37.0); MCV 88.2 fL (80.0-97.0); Mean Platelet Volume 10.3 fL (9.5-12.2); NRBC Per 100 WBC 0 /100 WBCS (0.0-0.0); Platelet Count 290 X 10*3/uL (140-440); RBC 4.67 X 10*6/uL (4.10-5.20); RDW 13.2 % (11.5-14.5); WBC 6.95 X 10*3/uL (4.50-10.00)
[2022-02-27 11:06] LABS: ALT 40 U/L (8-44); AST 40 U/L (13-35); African American GFR (CKD) 87.4 (60.0-200.0); Albumin 4.3 g/dL (3.8-4.9); Albumin/Globulin Ratio 1.65 (1.60-3.17); Alkaline Phosphatase 68 U/L (41-126); BUN/Creat Ratio 15.41 Ratio (12.00-20.00); Blood Urea Nitrogen 13.9 mg/dL (9.0-27.0); Calcium 9.1 mg/dL (8.7-10.3); Carbon Dioxide 26.6 mmol/L (20.0-27.5); Chloride 104 mmol/L (96-109); Chol/HDL Ratio 5.66 Ratio; Globulin 2.6 g/dL (1.6-3.3); Glucose 91 mg/dL (70-110); LDL Cholesterol,Calculated 180.9 mg/dL (0.0-131.0); Non-African American GFR(CKD) 75.4 (60.0-200.0); Potassium 4.7 mmol/L (3.5-5.5); Sodium 139 mmol/L (135-145)
== END | disposition home or self-care (01) ==
LOC: LABWHC1 07:15
PROVIDERS: ATTEND Family Medicine
DX: E03.9 Hypothyroidism, unspecified (principal); R73.02 Impaired glucose tolerance (oral)
CPT/HCPCS: 36415; 80053; 80061; 82306; 83036; 84439; 84443; 85027

== ENCOUNTER → 2022-04-09 | Outpatient (CLI) | payer MEDICAID ==
--- NOTE | 2022-04-10 10:39 | US ---
EXAMINATION TYPE: US liver DATE OF EXAM: 04/09/2022 COMPARISON: NONE CLINICAL HISTORY: K76.0 FATTY (CHANGE OF) LIVER, NOT ELSEWHERE CLASS. TECHNIQUE: Multiple sonographic images of the right upper quadrant are obtained. FINDINGS: EXAM MEASUREMENTS: Liver Length: 16.3 cm Gallbladder Wall: Surgically absent CBD: 0.2 cm Right Kidney: 10.2 x 4.1 x 4.5 cm ESTIMATOR PROJECT MANAGER NOTES: Pancreas: wnl Liver: Increased attenuation, decreased visualization of vessels suggestive of fatty infiltrate, ricarda ewhat limited visualization due to overlying bowel gas Gallbladder: Surgically absent Evidence for sonographic Dhillon's sign: no CBD: wnl Right Kidney: Inferior pole obscured by overlying bowel gas IMPRESSION: Hepatic steatosis.
== END | disposition home or self-care (01) ==
LOC: RADUSWWP 07:34
PROVIDERS: ATTEND Family Medicine
DX: K76.0 Fatty (change of) liver, not elsewhere classified (principal)
CPT/HCPCS: 76705

== ENCOUNTER → 2022-04-22 | Outpatient (CLI) | payer MEDICAID ==
--- NOTE | 2022-04-22 11:26 | NM ---
EXAMINATION TYPE: NM stress cardiolite complete DATE OF EXAM: 04/22/2022 COMPARISON: NONE HISTORY: Chest pain TECHNIQUE: After the intravenous administration of 9.6 mCi Tc 99m Sestamibi - Cardiolite resting SPE CT images acquired 24.4 minutes post injection. Patient achieved the target heart rate. FINDINGS: Review of stress and rest SPECT images demonstrates no distinct perfusion abnormality. Gated analysi s shows normal wall motion with an estimated left ventricular ejection fraction of 59 %. IMPRESSION: No scintigraphic evidence for reversible ischemia.
--- NOTE | 2022-04-22 11:52 | CA ---
Exercise Stress Test Report Name: Romelia Blanton Exam Date: 04/22/2022 09:58 Exam Location: [place] Stress Ht (in): 61 Wt (lb): 189 BSA: 1.84 Ordering Phys: Samara Peña DO Referring Phys: CATHERINE, Technologist: Ramos Suresh Age: 47 Gender: F : 1975 Procedure CPT: Indications: R07.9 CHEST PAIN ICD-10 Codes: Patient History: Medications: ROSIRVASTATIN, LEVOTHYROXINE, ESCITALOPAM Meds past 24 hrs: Pretest Chest Pain: STRESS TEST Nakul Protocol Exercise Duration (min:sec): 09:[address] Depressions (mm): Angina Score: Lentz Score: Resting HR (bpm): 64 Peak HR (bpm): 162 Resting BP (mmHg): 119 / 78 Peak BP (mmHg): 199 / 98 MPHR: 171 Target HR: 145 % MPHR: 95 METS: 10.6 Total Dose: Peak Dose: Atropine: Double Product: 89097 BP Response: Stress Termination: Reached target heart rate Stress Symptoms: NO SYMPTOMS Stress Summary: ECG ANALYSIS Resting ECG: Stress ECG: CONCLUSIONS Patient underwent exercise stress EKG with a Nakul protocol Cardiolite stress test. Patient exercised into Stage 3 for a total of 9 minutes 16 seconds reaching a total of 10.6 METS. Patient's maximum heart rate was 162 which represented 94 % age- predicted maximum heart rate. Stress EKG findings: At baseline patient's EKG showed normal sinus rhythm, normal axis, no significant ST or T wave abnormalities. At peak exercise, EKG showed no change from baseline. Conclusions: 1. Normal EKG response to exercise without evidence of inducible ischemia. 2. Good exercise capacity. 3. Nuclear portion to be reported separately. Dr. Jama Hinds DO (Electronically Signed) Final Date: 22 April 2022 11:51
== END | disposition home or self-care (01) ==
LOC: RADNMMAIN 07:29
PROVIDERS: ATTEND Family Medicine
DX: R07.9 Chest pain, unspecified (principal)
CPT/HCPCS: 93017; 78452; A9500

== ENCOUNTER → 2022-11-09 | Outpatient (CLI) | payer MEDICAID ==
--- NOTE | 2022-11-09 15:33 | BD ---
EXAMINATION TYPE: Axial Bone Density DATE OF EXAM: 11/09/2022 CLINICAL HISTORY: 47 years old Female. ICD-10 CODE: N95.1 Height: 5 ft 1 1/2 in Weight: 173 FRAX RISK QUESTIONS: Alcohol (3 or more units per day): no Family History (Parent hip fracture): no Glucocorticoids (More than 3mos): yes (Ex: prednisone, prednisolone, methylprednisolone, dexamethasone, and hydrocortisone). History of Fracture in Adulthood: yes Secondary Osteoporosis: 1. Type 1 Diabetes: no 2. Hyperthyroidism: no 3. Menopause before 45: no 4. Malnutrition: no 5. Chronic liver disease: fatty liver stage 3 Rheumatoid Arthritis: no Current Tobacco Use: no RISK FACTORS HISTORY OF: Surgery to Spine/Hip(right/left)/Wrist (right/left): no Family History of Osteoporosis: yes Active: yes Diet low in dairy products/other sources of calcium: no Postmenopausal woman: no If Premenopausal, do you have irregular periods: yes Take estrogen and/or progesterone medications: none Lost more than 2 inches in height since high school: no Frequent falls: no Poor Health: good Hyperparathyroidism: no Adrenal Insufficiency: no MEDICATIONS: Thyroid Medications: yes Which medication: levothyroxine How Long: since 2016 Additional Medications: statin, Lexapro, levothyroxine, vit d Additional History: rt carpal tunnel surg EXAM MEASUREMENTS: Bone mineral densitometry was performed using the [employer]. Bone mineral density as measured about the Lumbar spine is: ----- L1-L4(G/cm2): 1.436 T Score Values are as follows: ----- L1: 1.8 ----- L2: 2.0 ----- L3: 2.3 ----- L4: 2.1 ----- L1-L4: 2.1 Z Score Values are as follows: ----- L1: 1.7 ----- L2: 1.9 ----- L3: 2.3 ----- L4: 2.0 ----- L1-L4: 2.1 baseline Bone mineral density about the R hip (g/cm2): 0.819 Bone mineral density about the L hip (g/cm2): 0.911 T Score values are as follows: -----R Neck: -1.6 -----L Neck: -0.9 -----R Total: -0.6 -----L Total: -0.3 Z Score values are as follows: -----R Neck: -1.1 -----L Neck: -0.4 -----R Total: -0.6 -----L Total: -0.3 baseline FRAX%s: The graph provided illustrates a 8.0 % chance for a major osteoporotic fx and a 0.8 % chance for the hips probability for fx in 10 years time. IMPRESSION: Osteopenia (T Score between -2.5 and -1) at the femoral neck level in the right hip. There is slightly increased risk of fracture and the patient may be considered for treatment. Re-Screen 2-5 years. NOTE: T-SCORE=SD OF THE YOUNG ADULT MEAN.
== END | disposition home or self-care (01) ==
LOC: RADBDWWP 13:20
PROVIDERS: ATTEND Family Medicine
DX: N95.1 Menopausal and female climacteric states (principal); M85.89 Other specified disorders of bone density and structure, multiple sites
CPT/HCPCS: 77080

== ENCOUNTER → 2023-08-03 | Outpatient (CLI) | payer MEDICAID ==
[2023-08-03 15:44] LABS: HCT 42.9 % (37.2-46.3); HGB 13.8 g/dL (12.0-15.0); MCH 29.2 pg (27.0-32.0); MCHC 32.2 g/dL (32.0-37.0); MCV 90.7 FL (80.0-97.0); Mean Platelet Volume 11.4 FL (9.5-12.2); NRBC Per 100 WBC 0 X 10*3/uL (0.00-0.01); Platelet Count 269 X 10*3/uL (140-440); RBC 4.73 X 10*6/uL (4.10-5.20); RDW 12.1 % (11.5-14.5); WBC 6.61 X 10*3/uL (4.50-10.00)
[2023-08-03 15:58] LABS: ALT 22 U/L (8-44); AST 19 U/L (13-35); Albumin 4.7 g/dL (3.8-4.9); Albumin/Globulin Ratio 1.96 Ratio (1.60-3.17); Alkaline Phosphatase 66 U/L (41-126); BUN/Creat Ratio 16.56 Ratio (12.00-20.00); Blood Urea Nitrogen 14.9 mg/dL (9.0-27.0); Calcium 10.2 mg/dL (8.7-10.3); Carbon Dioxide 27.2 mmol/L (21.6-31.8); Chloride 104 mmol/L (96-109); Chol/HDL Ratio 2.97 Ratio; Globulin 2.4 g/dL (1.6-3.3); Glucose 94 mg/dL (70-110); LDL Cholesterol,Calculated 83.4 mg/dL (0.0-131.0); Potassium 4.9 mmol/L (3.5-5.5); Sodium 142 mmol/L (135-145); T4, Free (Free Thyroxine) 1.23 ng/dL (0.80-1.80); Total Bilirubin 0.5 mg/dL (0.3-1.2); Total Protein 7.1 g/dL (6.2-8.2)
== END | disposition home or self-care (01) ==
LOC: LABWHC1 07:15
PROVIDERS: ATTEND Family Medicine
DX: I10 Essential (primary) hypertension (principal); E03.9 Hypothyroidism, unspecified; F41.1 Generalized anxiety disorder; E66.9 Obesity, unspecified; R73.01 Impaired fasting glucose
CPT/HCPCS: 36415; 80053; 80061; 83036; 84439; 84443; 84480; 85027

== ENCOUNTER → 2023-11-29 | Outpatient (CLI) | payer MEDICAID ==
[2023-11-29 11:27] LABS: ALT 28 U/L (8-44); AST 17 U/L (13-35); Albumin 4.4 g/dL (3.8-4.9); Albumin/Globulin Ratio 1.83 Ratio (1.60-3.17); Alkaline Phosphatase 69 U/L (41-126); BUN/Creat Ratio 17.38 Ratio (12.00-20.00); Blood Urea Nitrogen 13.9 mg/dL (9.0-27.0); Calcium 9.5 mg/dL (8.7-10.3); Carbon Dioxide 28.6 mmol/L (21.6-31.8); Chloride 104 mmol/L (96-109); Globulin 2.4 g/dL (1.6-3.3); Glucose 88 mg/dL (70-110); LDL Cholesterol,Calculated 100.9 mg/dL (0.0-131.0); Potassium 3.9 mmol/L (3.5-5.5); Sodium 143 mmol/L (135-145); Testosterone <10.00 ng/dL (7.00-45.62); Total Bilirubin 0.4 mg/dL (0.3-1.2); Total Protein 6.8 g/dL (6.2-8.2)
[2023-11-29 15:06] LABS: Follicle Stimulating Hormone 85.6 mIU/mL; Luteinizing Hormone 32.2 mIU/mL
[2023-12-01 11:21] LABS: Basophils # (A) 0.06 X 10*3/uL (0.00-0.10); Basophils % (A) 0.9 %; Eosinophils # (A) 0.24 X 10*3/uL (0.04-0.35); Eosinophils % (A) 3.4 %; HCT 41.9 % (37.2-46.3); HGB 13.5 g/dL (12.0-15.0); Lymphocytes # (A) 2.79 X 10*3/uL (0.90-5.00); Lymphocytes % (A) 39.7 %; MCH 28.3 pg (27.0-32.0); MCHC 32.2 g/dL (32.0-37.0); MCV 87.8 FL (80.0-97.0); Mean Platelet Volume 10.7 FL (9.5-12.2); Monocytes # (A) 0.54 X 10*3/uL (0.20-1.00); Monocytes % (A) 7.7 %; NRBC Per 100 WBC 0 X 10*3/uL (0.00-0.01); Neutrophils # (A) 3.39 X 10*3/uL (1.80-7.70); Neutrophils % (A) 48.2 %; Platelet Count 266 X 10*3/uL (140-440); RBC 4.77 X 10*6/uL (4.10-5.20); RDW 12.1 % (11.5-14.5); WBC 7.03 X 10*3/uL (4.50-10.00)
== END | disposition home or self-care (01) ==
LOC: LABWHC1 07:45
PROVIDERS: ATTEND Family Medicine
DX: E28.39 Other primary ovarian failure (principal); R53.83 Other fatigue
CPT/HCPCS: 36415; 80053; 80061; 82306; 82672; 83001; 83002; 84403; 84443

== ENCOUNTER → 2023-12-01 | Outpatient (CLI) | payer MEDICAID ==
--- NOTE | 2023-12-02 15:09 | MM ---
Reason for Exam: Screening (asymptomatic). Last mammogram was performed 1 year(s) and 10 month(s) ago. Patient History: Menarche at age 10. First Full-Term at age 17. Currently using Hormonal Contraceptives, beginning at age 13 for 25 years. Last menstrual period: 01/09/2023 Risk Values: Mavis 5 year model risk: 0.7%. NCI Lifetime model risk: 6.5%. Prior Study Comparison: 09/03/2017 Bilateral Screening Mammogram, [facility]. 09/13/2018 Bilateral Screening Mammogram, [facility]. 01/22/2022 Bilateral MG 3D screening mammo w/cad, [facility]. Tissue Density: The breasts are heterogeneously dense, which may obscure small masses. Findings: Analyzed By CAD. There is no suspicious group of microcalcifications or new suspicious mass in either breast. Overall Assessment: Benign, BI-RAD 2 Management: Screening Mammogram of both breasts in 1 year. . Patient should continue monthly self-breast exams. A clinical breast exam by your physician is recommended on an annual basis. This exam should not preclude additional follow-up of suspicious palpable abnormalities. Note on Mavis scores and lifetime risk: 1. A Mavis score greater than 3% is considered moderate risk. If this is the case, consider specialist referral to assess eligibility for a risk reducing agent. 2. If overall lifetime risk for the development of breast cancer is 20% or higher, the patient may qualify for future screening with alternating mammogram and breast MRI. Electronically signed and approved by: Trevor Carias M.D. Radiologis
== END | disposition home or self-care (01) ==
LOC: RADMAMWWP 07:10
PROVIDERS: ATTEND Family Medicine
DX: Z12.31 Encounter for screening mammogram for malignant neoplasm of breast (principal)
CPT/HCPCS: 77063; 77067

== ENCOUNTER → 2024-10-25 | Outpatient (CLI) | payer MEDICAID ==
[2024-10-25 10:49] LABS: HCT 40.9 % (37.2-46.3); HGB 13.7 g/dL (12.0-15.0); MCH 29.8 pg (27.0-32.0); MCHC 33.5 g/dL (32.0-37.0); MCV 88.9 FL (80.0-97.0); Mean Platelet Volume 10.5 FL (9.5-12.2); NRBC Per 100 WBC 0 X 10*3/uL (0.00-0.01); Platelet Count 277 X 10*3/uL (140-440); RDW 11.9 % (11.5-14.5); WBC 7.11 X 10*3/uL (4.50-10.00)
[2024-10-25 10:57] LABS: ALT 16 U/L (8-44); AST 19 U/L (13-35); Albumin 4.3 g/dL (3.8-4.9); Albumin/Globulin Ratio 1.59 Ratio (1.60-3.17); Alkaline Phosphatase 59 U/L (41-126); BUN/Creat Ratio 10.78 Ratio (12.00-20.00); Blood Urea Nitrogen 9.7 mg/dL (9.0-27.0); Calcium 9.2 mg/dL (8.7-10.3); Carbon Dioxide 24.9 mmol/L (21.6-31.8); Chloride 105 mmol/L (96-109); Chol/HDL Ratio 4.94 Ratio; Estradiol 88.8 pg/mL; Globulin 2.7 g/dL (1.6-3.3); Glucose 93 mg/dL (70-110); LDL Cholesterol,Calculated 133.5 mg/dL (0.0-131.0); Potassium 4.3 mmol/L (3.5-5.5); Sodium 139 mmol/L (135-145); T4, Free (Free Thyroxine) 1.16 ng/dL (0.80-1.80); Total Bilirubin 0.6 mg/dL (0.3-1.2)
[2024-10-25 11:35] LABS: Follicle Stimulating Hormone 21.4 mIU/mL; Luteinizing Hormone 7.6 mIU/mL
== END | disposition home or self-care (01) ==
LOC: LABWHC1 07:09
PROVIDERS: ATTEND Physician Assistant
DX: E03.9 Hypothyroidism, unspecified (principal); E28.39 Other primary ovarian failure; E78.5 Hyperlipidemia, unspecified; K75.81 Nonalcoholic steatohepatitis (NASH)
CPT/HCPCS: 36415; 80053; 80061; 82670; 83001; 83002; 84144; 84439; 84443; 84481; 85027

== ENCOUNTER → 2025-03-13 | Outpatient (CLI) | payer MEDICAID ==
--- NOTE | 2025-03-13 12:35 | MR ---
EXAMINATION TYPE: MR shoulder LT wo con DATE OF EXAM: 03/13/2025 10:42 AM COMPARISON: Outside radiographs 02/28/2025 CLINICAL INDICATION: Female, 49 years old with history of M12.512 PAIN IN LEFT SHOULDER, Left shoulde r pain x 2 yrs, recently getting worse. TECHNIQUE: Multiplanar, multisequence imaging of the left shoulder is performed without contrast. FINDINGS: The long head biceps tendon appears intact and appropriately situated along the bicipital groove. Mil d tenosynovial fluid is present. The subscapularis tendon is intact. There is moderate degenerative change at the AC joint with a marginal spurring, subchondral cystic ch skip, and mild capsular hypertrophy. Abutment onto the underlying myotendinous junction of the supras pinatus. There is some shallow bursal sided tearing of the mid to posterior supraspinatus tendon fibers measur ing 1.5 cm long and 1.1 cm AP. Diffuse heterogeneity and thickening of the supraspinatus tendon with a 7 mm calcification at the ins ertional fibers of the posterior supraspinatus tendon insertion, coronal image 14 and sagittal image 6. Mild effusion within the subacromial/subdeltoid bursa and some reactive edema in the supraspinatus mu scle belly. No atrophy of the rotator cuff musculature. The glenohumeral joint appears intact with physiologic joint fluid. No discrete labral tear given non arthrographic technique and no para labral cyst. Physiologic glenohumeral joint fluid. No Hill-Sachs deformity or os acromiale. Some patchy red marrow hyperplasia is present. No suspicious bone marrow replacement. IMPRESSION: 1. A 7 mm focus of calcification in the posterior supraspinatus tendon. There is edema within the sup raspinatus tendon and muscle along with mild overlying bursitis. Correlate for calcific tendinitis. 2. 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 Given some shallow bursal sided tearing of the mid to posterior supraspinatus tendon fibers, consider subacromial impingement. No high-grade partial or fu ll-thickness rotator cuff tear. [facility], Workstation: [id number], 03/13/2025 12:33 PM
== END | disposition home or self-care (01) ==
LOC: RADMRIMAIN 10:02
PROVIDERS: ATTEND Orthopaedic Surgery
DX: M19.012 Primary osteoarthritis, left shoulder (principal); R60.0 Localized edema